=== PATIENT | male | born 1955 | race American Indian/Alaskan Native ===

== ENCOUNTER 2016-07-07 14:12 | Outpatient (CLI) | payer OTHER ==
[2016-07-07 15:04] LABS: Blood Urea Nitrogen 10 mg/dL (9-20)
--- NOTE | 2016-07-08 10:26 | Cat Scan Report ---
CTA CHEST INDICATION: Thoracic aortic aneurysm without rupture. COMPARISON: None similar at this institution. FINDINGS: Chest CTA performed following intravenous administration of 100 cc of Omnipaque 350. Rotational MIP's also obtained. Normal heart size. No effusions. Proximal ascending aorta 4 cm AP, axial image 101, series 2, though attains a normal caliber at the arch. No aortic dissection or suspicious pulmonary arterial filling defects. No size significant adenopathy. Normal airway. Unremarkable thyroid. Clear lungs. Right hemidiaphragm mildly elevated. Mild nonspecific distal esophageal wall thickening, not excluded for gastroesophageal reflux and/or hiatal hernia, amongst others. Images through included upper abdomen reveal no acute abnormality. Couple of hyperdense ascending colon diverticuli noted. Unremarkable bones. CONCLUSION: Borderline ascending aortic aneurysm and few other incidental findings without significant acute chest process, as described. Please correlate. Thank you for the opportunity to participate in this patient's care.
== END 2016-07-07 14:13 | disposition home or self-care (01) ==
LOC: CT 14:12
PROVIDERS: ATTEND Internal Medicine Cardiovascular Disease
DX: I71.2 Thoracic aortic aneurysm, without rupture (principal); J98.6 Disorders of diaphragm
CPT/HCPCS: 36415; 71275; 82565; 84520; Q9967

== ENCOUNTER 2019-03-13 10:13 | Outpatient (CLI) | payer BC ==
--- NOTE | 2019-03-13 12:05 | Cat Scan Report ---
CT ABDOMEN AND PELVIS WITHOUT CONTRAST HISTORY: R31.0 HEMATURIA COMPARISON: None. TECHNIQUE: Axial CT images were obtained through the abdomen and pelvis without IV contrast. Sagittal and coronal reformatted images. All CT scans at this location are performed using CT dose reduction for ALARA by means of automated exposure control. FINDINGS: CT ABDOMEN: Lung Bases: Clear. Liver: No significant abnormality. Biliary: No significant abnormality. Spleen: No significant abnormality. Unenlarged. Pancreas: No significant abnormality. Adrenals: No significant abnormality. Kidneys: No significant abnormality. No evidence for focal renal lesion or nephrolithiasis. The urete rs are normal course and caliber. Lymphatics: No lymphadenopathy. Vasculature: No significant abnormality. Bowel/Peritoneum: No evidence for bowel obstruction or focal inflammation. There are a few scattered diverticula in the ascending colon. No free fluid, inflammatory changes or free air. Normal appendix. CT PELVIS: : The bladder is partially empty. Mild diffuse bladder wall thickening is suggested which could be secondary to poor distention, trabeculation or cystitis. The prostate gland is unremarkable. Osseous Structures: No significant abnormality. Additional Findings: None IMPRESSION: No clear explanation for hematuria. No renal disease or nephrolithiasis is appreciated. The bladder is partially empty. There may be mild diffuse bladder wall thickening as described. Corre late with the patient's clinical presentation. Mild diverticulosis of the proximal colon. Signer Name: Blake Anaya Jr, MD Signed: 03/13/2019 12:00 PM Workstation Name: [id number]
== END 2019-03-13 10:14 | disposition home or self-care (01) ==
LOC: CT 10:13
PROVIDERS: ATTEND Urology
DX: K57.30 Diverticulosis of large intestine without perforation or abscess without bleeding (principal); R31.0 Gross hematuria
CPT/HCPCS: 74176

== ENCOUNTER 2019-03-14 13:28 | Day surgery (SDC) | payer BC, OTHER ==
--- NOTE | 2019-03-14 14:03 | Anesthesia Consultation ---
Anesthesia Consult and Med Hx Date of service: 03/14/19 - Airway Anesthetic Teeth Evaluation: Caps ROM Head & Neck: Adequate Mental/Hyoid Distance: Adequate Mallampati Class: Class II Intubation Access Assessment: Good - Pulmonary Exam CTA: Yes - Cardiac Exam Cardiac Exam: RRR - Pre-Operative Health Status ASA Pre-Surgery Classification: ASA3 Proposed Anesthetic Plan: General - Pulmonary Hx Smoking: No Hx Sleep Apnea: Yes - Cardiovascular System Hx Hypertension: Yes (since 2013) - Central Nervous System Hx Psychiatric Problems: No - Hematic Hx Anemia: Yes - Other Systems Hx Alcohol Use: Yes (RARE ) Hx Cancer: Yes Hx Obesity: Yes
--- NOTE | 2019-03-14 14:03 | Anesthesia Day of Surgery ---
Anesthesia Day of Surgery - Day of Surgery Patient Examined: Yes Patient H&P Reviewed: Yes Patient is NPO: Yes
[2019-03-14] MEDS ORDERED: LACTATED RINGERS 1,000 ML IV SCH (15:00)
[2019-03-14] MEDS ORDERED: FAMOTIDINE 20 MG TAB PO NR (15:00)
[2019-03-14] MEDS ORDERED: HYDROmorphone 1 MG/1 ML INJ ONE ×2 (15:08→16:42)
[2019-03-14] MEDS ORDERED: PROPOFOL 200 MG/20 ML VIAL IV ONE (15:08)
[2019-03-14] MEDS ORDERED: LIDOCAINE MPF (2%) 20 MG/1 ML VIAL 5 ML ONE (15:09)
--- NOTE | 2019-03-14 15:19 | Post Operative Note ---
Date of procedure: 03/14/19 Pre-op diagnosis: hematuria Post-op diagnosis: same Findings: see op note Procedure: cysto rpgs Anesthesia: GETA Surgeon: PRIMO COLEMAN Estimated blood loss: minimal Pathology: list (bladder) Specimen disposition: to lab Condition: stable Disposition: PACU
--- NOTE | 2019-03-14 15:20 | Discharge Summary ---
Short Stay Discharge Plan Activity: other (no straining ) Weight Bearing Status: Full Weight Bearing Diet: low fat, low cholesterol, low salt Special Instructions: other (teach lainez care ) Durable Medical Equipment Needed Upon Discharge: other (inc fluids lainez ) Follow up with: CHRISTINA MITCHELL MD [Primary Care Provider] - 7 Days PRIMO COLEMAN MD [Staff Physician] - 03/19/19
[2019-03-14] MEDS ORDERED: WATER FOR IRRIG STERILE 2000 ML IR ONE (15:38)
[2019-03-14] MEDS ORDERED: WATER FOR IRRIG STERILE 1,000 ML BOTTLE IR ONE (15:38)
[2019-03-14] MEDS ORDERED: FUROSEMIDE 40 MG/4 ML INJ ONE (15:41)
[2019-03-14] MEDS ORDERED: ONDANSETRON 4 MG/2 ML INJ ONE (15:54)
--- NOTE | 2019-03-14 16:18 | Operative Report ---
PREOPERATIVE DIAGNOSES: Hematuria, prostatic enlargement. POSTOPERATIVE DIAGNOSES: Hematuria, prostatic enlargement. PROCEDURES: Cystoscopy, bladder biopsy, fulguration, retrograde. SURGEON: Dr. Banda. ANESTHESIA: General. FINDINGS: This is a gentleman with large prostate and hematuria. CT scan negative. He now presents for treatment. DESCRIPTION OF PROCEDURE: The patient was brought to the operating room and placed on the operating table. Following induction of anesthesia, placed in lithotomy position, prepped and draped in usual sterile fashion. Cystourethroscopy showed trilobar hypertrophy. The bladder neck was very elevated. Retrograde showed severe J hooking with a large prostate and some varices. At this point, a little erythema posterior wall was biopsied. The patient tolerated the procedure well. Area was cauterized. A Mendez catheter was left, brought to recovery room in stable condition. JOB# [id number] NIKKO/SHADE
[2019-03-14] MEDS: HYDROmorphone 1 MG/1 ML INJ IV PRN ×2 (16:35→16:50)
[2019-03-14] MEDS ORDERED: oxyCODONE /ACETAMINOPHEN 5-325MG TAB PO ONE (17:50)
--- NOTE | 2019-03-14 18:00 | Fluoroscopy Report ---
Left retrograde pyelogram INDICATION: Hematuria FINDINGS: 6 views obtained from C-arm exam in the cystoscopy suite show selective injection of both u reteral orifices. There is no hydronephrosis or hydroureter on either side. Air bubbles are seen but there is no definite stone or tumor identified and there is no significant abnormality. Total fluoroscopic time was 12 seconds. Signer Name: Gomez Hernandez MD Signed: 03/14/2019 5:55 PM Workstation Name: [id number]
[2019-03-14 19:14] VITALS: BP 135/65
== END 2019-03-14 18:16 | disposition home or self-care (01) ==
LOC: OR 13:28
PROVIDERS: ATTEND Urology
DX: R31.0 Gross hematuria (principal); N40.1 Benign prostatic hyperplasia with lower urinary tract symptoms; E78.00 Pure hypercholesterolemia, unspecified; I10 Essential (primary) hypertension; G47.30 Sleep apnea, unspecified; E66.9 Obesity, unspecified; K21.9 Gastro-esophageal reflux disease without esophagitis; Z98.890 Other specified postprocedural states; Z88.2 Allergy status to sulfonamides; Z79.899 Other long term (current) drug therapy; Z68.41 Body mass index [BMI] 40.0-44.9, adult; Z85.46 Personal history of malignant neoplasm of prostate; Z72.89 Other problems related to lifestyle; Z86.2 Personal history of diseases of the blood and blood-forming organs and certain disorders involving the immune mechanism
CPT/HCPCS: 52204; 74420; 82803; 88305; A4217; C1758; J1170; J1940; J2405; J2704; J7120; Q9967

== ENCOUNTER 2019-03-15 12:32 | Emergency (ER) | payer BC ==
--- NOTE | 2019-03-15 12:52 | Event Note ---
ED Screening Note ED Screening Note: urinary catheter leaking procedure yesterday Dr Patti biggs rx antibiotic prozac This initial assessment/diagnostic orders/clinical plan/treatment(s) is/are subject to change based on patients health status, clinical progression and re- assessment by fellow clinical providers in the ED. Further treatment and workup at subsequent clinical providers discretion. Patient/guardian urged not to elope from the ED as their condition may be serious if not clinically assessed and managed. Initial orders include: ua cs lainez change
[2019-03-15 13:32] LABS: Basophils % (Auto) 0.5 % (0.0-1.8); Eosinophils % (Auto) 0.4 % (0.0-4.3); Hematocrit 38.6 % (35.5-45.6); Hemoglobin 13.3 gm/dl (11.8-15.2); Lymphocytes # (Auto) 1.3 K/mm3 (1.2-5.4); Lymphocytes % (Auto) 15.9 % (13.4-35.0); Mean Corpuscular HGB Conc 34 % (32-34); Mean Corpuscular Volume 93 fl (84-94); Monocytes # (Auto) 0.8 K/mm3 (0.0-0.8); Monocytes % (Auto) 10.4 % (0.0-7.3); Platelet Count 229 K/mm3 (140-440); Red Blood Count 4.13 M/mm3 (3.65-5.03)
[2019-03-15 14:22] LABS: BUN/Creatinine Ratio 15; Blood Urea Nitrogen 15 mg/dL (9-20); Calcium 9.4 mg/dL (8.4-10.2); Hemolysis Index 4
[2019-03-15 16:34] LABS: Bilirubin,Urine NEG (Negative); Blood,Urine LG (Negative); Calcium Oxalate Crystals,Urine 1+; Color,Urine Yellow (Yellow); Mucus,Urine 3+ /HPF; Urobilinogen,Urine < 2.0 mg/dL (<2.0)
[2019-03-15 16:40] LABS: RBC,Urine > 182.0 /HPF (0.0-6.0)
[2019-03-15 17:04] VITALS: BP 144/76
--- NOTE | 2019-03-15 17:22 | Emergency Department Report ---
ED General Adult HPI - General Chief complaint: Urogenital-Male Stated complaint: DIFFICULTY URINATING Time Seen by Provider: 03/15/19 12:49 Source: patient Mode of arrival: Ambulatory Limitations: No Limitations - History of Present Illness Initial comments: Patient presents to the emergency department for chief complaint of leaking around his Mendez and bladder pain. Patient is one day status post a retrograde pyelogram was sent home with indwelling Mendez. Patient states he feels continuously full and has had leakage around the Mendez. -: Sudden Severity scale (0 -10): 2 Consistency: constant Improves with: none Worsens with: none Associated Symptoms: denies other symptoms Treatments Prior to Arrival: none - Related Data Home Medications Medication Instructions Recorded Confirmed Last Taken Atorvastatin (Nf) [Lipitor (Nf)] 10 mg PO QHS 05/10/14 03/14/19 03/13/19 21:00 Tamsulosin [Flomax] 10 mg PO QDAY 05/10/14 03/14/19 03/13/19 08:00 amLODIPine [Norvasc] 10 mg PO DAILY 05/10/14 03/14/19 03/13/19 08:00 Multivitamin [One-Daily 1 tab PO DAILY 11/20/18 03/14/19 03/13/19 08:00 Multi-Vitamin] [place] 3,6,9 Combination No.7 1 mg PO DAILY 11/20/18 03/14/19 03/13/19 08:00 Previous Rx's Medication Instructions Recorded Last Taken Type cephALEXin [Keflex] 500 mg PO Q6HR #40 capsule 03/15/19 Unknown Rx Allergies Allergy/AdvReac Type Severity Reaction Status Date / Time Sulfa (Sulfonamide AdvReac Swelling Verified 03/08/19 14:52 Antibiotics) ED Review of Systems ROS: Stated complaint: DIFFICULTY URINATING Other details as noted in HPI Comment: All other systems reviewed and negative Constitutional: denies: chills, fever Eyes: denies: eye pain, eye discharge, vision change ENT: denies: ear pain, throat pain Respiratory: denies: cough, shortness of breath, wheezing Cardiovascular: denies: chest pain, palpitations Endocrine: no symptoms reported Gastrointestinal: denies: abdominal pain, nausea, diarrhea Genitourinary: denies: urgency, dysuria Musculoskeletal: denies: back pain, joint swelling, arthralgia Skin: denies: rash, lesions Neurological: denies: headache, weakness, paresthesias Psychiatric: denies: anxiety, depression Hematological/Lymphatic: denies: easy bleeding, easy bruising ED Past Medical Hx - Past Medical History Hx Hypertension: Yes (since 2013) Hx Diabetes: Yes (BORDERLINE- DIET CONTROLLED) Hx GERD: Yes Hx Tuberculosis: No - Surgical History Additional Surgical History: Retrograde pyelogram - Social History Smoking Status: Never Smoker Substance Use Type: None - Medications Home Medications: Home Medications Medication Instructions Recorded Confirmed Last Taken Type Atorvastatin (Nf) [Lipitor (Nf)] 10 mg PO QHS 05/10/14 03/14/19 03/13/19 21:00 History Tamsulosin [Flomax] 10 mg PO QDAY 05/10/14 03/14/19 03/13/19 08:00 History amLODIPine [Norvasc] 10 mg PO DAILY 05/10/14 03/14/19 03/13/19 08:00 History Multivitamin [One-Daily 1 tab PO DAILY 11/20/18 03/14/19 03/13/19 08:00 History Multi-Vitamin] [place] 3,6,9 Combination No.7 1 mg PO DAILY 11/20/18 03/14/19 03/13/19 08:00 History cephALEXin [Keflex] 500 mg PO Q6HR #40 capsule 03/15/19 Unknown Rx ED Physical Exam - General Limitations: No Limitations General appearance: alert, in no apparent distress - Head Head exam: Present: atraumatic, normocephalic - Eye Eye exam: Present: normal appearance, PERRL, EOMI - ENT ENT exam: Present: mucous membranes moist - Neck Neck exam: Present: normal inspection - Respiratory Respiratory exam: Present: normal lung sounds bilaterally. Absent: respiratory distress - Cardiovascular Cardiovascular Exam: Present: regular rate, normal rhythm. Absent: systolic murmur, diastolic murmur, rubs, gallop - GI/Abdominal GI/Abdominal exam: Present: soft, normal bowel sounds. Absent: distended, tenderness - Rectal Rectal exam: Present: deferred - exam: Present: other (Mendez in place) - Extremities Exam Extremities exam: Present: normal inspection - Back Exam Back exam: Present: normal inspection - Neurological Exam Neurological exam: Present: alert, oriented X3 - Psychiatric Psychiatric exam: Present: normal affect, normal mood - Skin Skin exam: Present: warm, dry, intact, normal color. Absent: rash ED Course Vital Signs 03/15/19 03/15/19 12:53 17:02 Temperature 98.8 F 98.6 F Pulse Rate 102 H 82 Respiratory 20 12 Rate Blood Pressure 165/77 Blood Pressure 144/76 [Left] O2 Sat by Pulse 95 94 Oximetry ED Medical Decision Making - Lab Data Result diagrams: 03/15/19 12:58 03/15/19 12:58 Lab Results 03/15/19 03/15/19 03/15/19 Range/Units 12:58 12:58 Unknown WBC 7.9 (4.5-11.0) K/mm3 RBC 4.13 (3.65-5.03) M/mm3 Hgb 13.3 (11.8-15.2) gm/dl Hct 38.6 (35.5-45.6) % MCV 93 (84-94) fl MCH 32 (28-32) pg MCHC 34 (32-34) % RDW 13.0 L (13.2-15.2) % Plt Count 229 (140-440) K/mm3 Lymph % (Auto) 15.9 (13.4-35.0) % [place] % (Auto) 10.4 H (0.0-7.3) % Eos % (Auto) 0.4 (0.0-4.3) % Baso % (Auto) 0.5 (0.0-1.8) % Lymph # 1.3 (1.2-5.4) K/mm3 [place] # 0.8 (0.0-0.8) K/mm3 Eos # 0.0 (0.0-0.4) K/mm3 Baso # 0.0 (0.0-0.1) K/mm3 Seg Neutrophils % 72.8 H (40.0-70.0) % Seg Neutrophils # 5.8 (1.8-7.7) K/mm3 Sodium 136 L (137-145) mmol/L Potassium 4.0 (3.6-5.0) mmol/L Chloride 99.4 (98-107) mmol/L Carbon Dioxide 19 L (22-30) mmol/L Anion Gap 22 mmol/L BUN 15 (9-20) mg/dL Creatinine 1.0 (0.8-1.5) mg/dL Estimated GFR > 60 ml/min BUN/Creatinine Ratio 15 % Glucose 117 H (75-100) mg/dL Calcium 9.4 (8.4-10.2) mg/dL Urine Color Yellow (Yellow) Urine Turbidity Cloudy (Clear) Urine pH 5.0 (5.0-7.0) Ur Specific [place] 1.033 H (1.003-1.030) Urine Protein 100 mg/dl (Negative) mg/dL Urine Glucose (UA) Neg (Negative) mg/dL Urine Ketones Tr (Negative) mg/dL Urine Blood Lg (Negative) Urine Nitrite Neg (Negative) Urine Bilirubin Neg (Negative) Urine Urobilinogen < 2.0 (<2.0) mg/dL Ur Leukocyte Esterase Lg (Negative) Urine WBC (Auto) 111.0 H (0.0-6.0) /HPF Urine RBC (Auto) > 182.0 (0.0-6.0) /HPF Calcium Oxalate Crystal 1+ Urine Mucus 3+ /HPF - Medical Decision Making SR ultrasound done and shows us small amount of urine in the bladder Upon examination of the Mendez 8cc's of air was taking out but we were able to put 20 back and without any resistance The was replaced just a procedure and the balloon appeared to be damaged on the initial Mendez 300 mL of urine excreted upon change of Mendez Critical care attestation.: If time is entered above; I have spent that time in minutes in the direct care of this critically ill patient, excluding procedure time. ED Disposition Clinical Impression: Mendez catheter problem, Bacteriuria Disposition: TO HOME OR SELFCARE Is pt being admited?: No Does the pt Need Aspirin: No Condition: Stable Instructions: Mendez Catheter Placement and Care (ED), Urinary Tract Infection in Men (ED) Additional Instructions: return if worse Referrals: PRIMARY CARE, [Primary Care Provider] - 3-5 Days PRIMO COLEMAN MD [Staff Physician] - 3-5 Days Time of Disposition: 20:32
== END 2019-03-15 20:58 | disposition home or self-care (01) ==
LOC: ED 12:32
DX: R82.71 Bacteriuria (principal); T83.091A Other mechanical complication of indwelling urethral catheter, initial encounter; I10 Essential (primary) hypertension; E11.9 Type 2 diabetes mellitus without complications; K21.9 Gastro-esophageal reflux disease without esophagitis; Z98.890 Other specified postprocedural states; Z79.899 Other long term (current) drug therapy; Z88.2 Allergy status to sulfonamides
CPT/HCPCS: 36415; 51702; 80048; 81001; 85025; 87086

== ENCOUNTER 2019-04-07 06:10 | Observation (INO) | payer BC, OTHER ==
[2019-04-07] MEDS ORDERED: HYDROcodone/ACETAMINOPHEN 5-325 MG TAB PO ONE (07:10)
--- NOTE | 2019-04-07 07:22 | Emergency Department Report ---
HPI - General Chief Complaint: Urogenital-Male Time Seen by Provider: 04/07/19 06:30 - HPI HPI: Room 23 The patient is a 63-year-old male presenting with chief complaint urinary retention. Sensation states symptoms began yesterday at noon with hematuria small amount of dysuria. The patient states then began feels bladder becomes full eventually could not urinate since 06:00 this morning. The patient had a Mendez catheter placed in the ED and states he felt relief initially but now feels the pressure is building back up. There is approximately 700 and also bloody urine present in his Mendez bag. Location: [See above] Duration: [See above] Quality: [See above] Severity: [See above] Timing: [See above] Context: [See above] Modifying factors: [See above] Associated signs and symptoms: [see above] ED Past Medical Hx - Past Medical History Previous Medical History?: Yes Hx Hypertension: Yes (since 2013) Hx Diabetes: Yes (BORDERLINE- DIET CONTROLLED) Hx GERD: Yes Hx of Cancer: Yes (prostate) Additional medical history: high cholesterol - Surgical History Past Surgical History?: Yes Additional Surgical History: Retrograde pyelogram, prostate seed implants - Family History Family history: no significant - Social History Smoking Status: Never Smoker Substance Use Type: None (denies illicit drug use), Alcohol (occasional) - Medications Home Medications: Home Medications Medication Instructions Recorded Confirmed Last Taken Type Atorvastatin (Nf) [Lipitor (Nf)] 10 mg PO QHS 05/10/14 03/14/19 03/13/19 21:00 History Tamsulosin [Flomax] 10 mg PO QDAY 05/10/14 03/14/19 03/13/19 08:00 History amLODIPine [Norvasc] 10 mg PO DAILY 05/10/14 03/14/19 03/13/19 08:00 History Multivitamin [One-Daily 1 tab PO DAILY 11/20/18 03/14/19 03/13/19 08:00 History Multi-Vitamin] [place] 3,6,9 Combination No.7 1 mg PO DAILY 11/20/18 03/14/19 03/13/19 08:00 History cephALEXin [Keflex] 500 mg PO Q6HR #40 capsule 03/15/19 Unknown Rx ED Review of Systems ROS: Stated complaint: BLADDER PAIN Other details as noted in HPI Genitourinary: dysuria, hematuria, other (urinary retention) Physical Exam - Physical Exam Vital Signs: Vital Signs 04/07/19 04/07/19 06:15 06:50 Temperature 98.2 F Pulse Rate 98 H Respiratory 20 18 Rate Blood Pressure 112/76 O2 Sat by Pulse 99 99 Oximetry Physical Exam: GENERAL: The patient is well-developed well-nourished male sitting on stretcher not appearing to be in acute distress. [] HEENT: Normocephalic. Atraumatic. Extraocular motions are intact. Patient has moist mucous membranes. NECK: Supple. Trachea midline CHEST/LUNGS: Clear to auscultation. There is no respiratory distress noted. HEART/CARDIOVASCULAR: Regular. There is no tachycardia. There is no gallop rub or murmur. ABDOMEN: Abdomen is soft, nontender. Patient has normal bowel sounds. There is no abdominal distention. SKIN: There is no rash. There is no edema. There is no diaphoresis. NEURO: The patient is awake, alert, and oriented. The patient is cooperative. The patient has normal speech MUSCULOSKELETAL: There is no evidence of acute injury. ED Course Vital Signs 04/07/19 04/07/19 06:15 06:50 Temperature 98.2 F Pulse Rate 98 H Respiratory 20 18 Rate Blood Pressure 112/76 O2 Sat by Pulse 99 99 Oximetry - Reevaluation(s) Reevaluation #1: 04/07/19 09:22 Patient states he feels improved - Consultations Consultation #1: 04/07/19 09:21 Urology paged 04/07/19 09:[address] Banda- states patient should be admitted by the hospitalist and we made nothing by mouth for possible cystoscopy later today. Once patient typed and crossed for 2 units PRBCs ED Medical Decision Making - Lab Data Result diagrams: 04/07/19 07:20 04/07/19 07:20 Laboratory Tests 04/07/19 04/07/19 04/07/19 07:20 07:20 07:20 WBC 4.8 RBC 3.05 L Hgb 9.7 L Hct 28.3 L MCV 93 MCH 32 MCHC 34 RDW 12.9 L Plt Count 290 Lymph % (Auto) 21.2 [place] % (Auto) 11.8 H Eos % (Auto) 1.0 Baso % (Auto) 0.3 Lymph # 1.0 L [place] # 0.6 Eos # 0.0 Baso # 0.0 Seg Neutrophils % 65.7 Seg Neutrophils # 3.1 PT 14.2 INR 1.09 APTT 27.4 Sodium 133 L Potassium 4.4 Chloride 100.3 Carbon Dioxide 18 L Anion Gap 19 BUN 25 H Creatinine 1.3 Estimated GFR > 60 BUN/Creatinine Ratio 19 Glucose 132 H Calcium 9.2 Urine Color Urine Turbidity Urine pH Ur Specific [place] Urine Protein Urine Glucose (UA) Urine Ketones Urine Blood Urine Nitrite Urine Bilirubin Urine Urobilinogen Ur Leukocyte Esterase Urine WBC (Auto) Urine RBC (Auto) 04/07/19 08:10 WBC RBC Hgb Hct MCV MCH MCHC RDW Plt Count Lymph % (Auto) [place] % (Auto) Eos % (Auto) Baso % (Auto) Lymph # [place] # Eos # Baso # Seg Neutrophils % Seg Neutrophils # PT INR APTT Sodium Potassium Chloride Carbon Dioxide Anion Gap BUN Creatinine Estimated GFR BUN/Creatinine Ratio Glucose Calcium Urine Color Red Urine Turbidity Cloudy Urine pH 6.0 Ur Specific [place] 1.026 Urine Protein >500 Urine Glucose (UA) 50 Urine Ketones Tr Urine Blood Lg Urine Nitrite Neg Urine Bilirubin Neg Urine Urobilinogen < 2.0 Ur Leukocyte Esterase Neg Urine WBC (Auto) 25.0 H Urine RBC (Auto) > 182.0 - Differential Diagnosis urinary retention Critical care attestation.: If time is entered above; I have spent that time in minutes in the direct care of this critically ill patient, excluding procedure time. ED Disposition Clinical Impression: Urinary retention, UTI (urinary tract infection), Hematuria Disposition: 09 OP ADMIT IP TO THIS HOSP Is pt being admited?: Yes Does the pt Need Aspirin: No Condition: Fair Time of Disposition: 09:42 (hospitalist paged)
[2019-04-07 07:49] LABS: Basophils % (Auto) 0.3 % (0.0-1.8); Hematocrit 28.3 % (35.5-45.6); Hemoglobin 9.7 gm/dl (11.8-15.2); Lymphocytes % (Auto) 21.2 % (13.4-35.0); Mean Corpuscular HGB Conc 34 % (32-34); Mean Corpuscular Volume 93 fl (84-94); Monocytes # (Auto) 0.6 K/mm3 (0.0-0.8); Monocytes % (Auto) 11.8 % (0.0-7.3); Platelet Count 290 K/mm3 (140-440); Red Blood Count 3.05 M/mm3 (3.65-5.03); Red Cell Distribution Width 12.9 % (13.2-15.2)
[2019-04-07 07:52] LABS: INR 1.09 (0.87-1.13)
[2019-04-07 07:53] LABS: Partial Thromboplastin Time 27.4 Sec. (24.2-36.6)
[2019-04-07] MEDS ORDERED: diazePAM 5 MG TAB PO ONE (08:00)
[2019-04-07 08:02] LABS: BUN/Creatinine Ratio 19; Blood Urea Nitrogen 25 mg/dL (9-20); Calcium 9.2 mg/dL (8.4-10.2); Hemolysis Index 4
[2019-04-07] MEDS ORDERED: diazePAM 5 MG TAB ONE (08:03)
[2019-04-07 08:49] LABS: Bilirubin,Urine NEG (Negative); Blood,Urine LG (Negative); Color,Urine Red (Yellow); Urobilinogen,Urine < 2.0 mg/dL (<2.0)
[2019-04-07 09:08] LABS: Protein,Urine >500 mg/dL (Negative); RBC,Urine > 182.0 /HPF (0.0-6.0)
[2019-04-07] MEDS ORDERED: SODIUM CHLORIDE 0.9% 500 ML 500 ML IV ONE (09:38)
[2019-04-07] MEDS ORDERED: SODIUM CHLORIDE 0.9% 500 ML 500 ML ONE ×2 (10:15→13:06)
--- NOTE | 2019-04-07 10:46 | Anesthesia Consultation ---
Anesthesia Consult and Med Hx Date of service: 04/07/19 - Airway Anesthetic Teeth Evaluation: Good ROM Head & Neck: Adequate Mental/Hyoid Distance: Adequate Mallampati Class: Class III Intubation Access Assessment: Possibly Difficult (previous LMA 4) - Pulmonary Exam CTA: Yes - Cardiac Exam Cardiac Exam: RRR - Pre-Operative Health Status ASA Pre-Surgery Classification: ASA3 Proposed Anesthetic Plan: General - Pulmonary Hx Smoking: No Hx Respiratory Symptoms: No Hx Sleep Apnea: Yes (noncompliant with CPAP) - Cardiovascular System Hx Hypertension: Yes Hx Heart Attack/AMI: No Hx Percutaneous Transluminal Coronary Angioplasty (PTCA): No Hx Cardia Arrhythmia: No - Central Nervous System CVA: No Hx Psychiatric Problems: No - Gastrointestinal Hx Gastroesophageal Reflux Disease: No - Endocrine Hx Renal Disease: No Hx Liver Disease: No Hx Non-Insulin Dependent Diabetes: Yes (diet controlled) Hx Thyroid Disease: No - Hematic Hx Anemia: Yes - Other Systems Hx Alcohol Use: Yes (RARE ) Hx Cancer: Yes (hx prostate ca) Hx Obesity: Yes (BMI 44) - Additional Comments Anesthesia Medical History Comments: No hx anesthetic complications. Presented with urinary retention and hematuria now scheduled for cystoscopy. HD stable. 2 units pRBCs ordered on stand by (patient gave verbal consent for transfusion if required).
--- NOTE | 2019-04-07 10:47 | Anesthesia Day of Surgery ---
Anesthesia Day of Surgery - Day of Surgery Patient Examined: Yes Patient H&P Reviewed: Yes Patient is NPO: Yes (last solids >12hrs, last liquids >6hrs)
[2019-04-07] MEDS ORDERED: LIDOCAINE MPF (2%) 20 MG/1 ML VIAL 5 ML ONE (10:54)
[2019-04-07] MEDS ORDERED: HYDROmorphone 1 MG/1 ML INJ ONE (10:54)
[2019-04-07] MEDS ORDERED: PROPOFOL 200 MG/20 ML VIAL IV ONE (10:54)
--- NOTE | 2019-04-07 11:48 | Progress Note ---
Assessment and Plan admit transfuse spoke with Samuel poss embolization h and p on chart Subjective Date of service: 04/07/19 Principal diagnosis: hemasturia radiation prostatitis Objective - Constitutional Vitals: Vital Signs - 12hr 04/07/19 04/07/19 04/07/19 06:15 06:50 07:00 Temperature 98.2 F Pulse Rate 98 H Respiratory 20 18 Rate Blood Pressure 112/76 109/56 O2 Sat by Pulse 99 99 96 Oximetry 04/07/19 04/07/19 04/07/19 07:25 08:00 09:00 Temperature Pulse Rate Respiratory 18 Rate Blood Pressure 163/103 112/67 O2 Sat by Pulse 97 95 Oximetry 04/07/19 10:00 Temperature Pulse Rate Respiratory Rate Blood Pressure 123/69 O2 Sat by Pulse 90 Oximetry General appearance: Present: mild distress - Neck Neck: supple - Respiratory Respiratory effort: normal Extremities: no ischemia - Gastrointestinal General gastrointestinal: Present: non-distended - Labs CBC & Chem 7: 04/07/19 07:20 04/07/19 07:20 Labs: Abnormal lab results 04/07/19 04/07/19 04/07/19 Range/Units 07:20 07:20 08:10 RBC 3.05 L (3.65-5.03) M/mm3 Hgb 9.7 L (11.8-15.2) gm/dl Hct 28.3 L (35.5-45.6) % RDW 12.9 L (13.2-15.2) % [place] % (Auto) 11.8 H (0.0-7.3) % Lymph # 1.0 L (1.2-5.4) K/mm3 Sodium 133 L (137-145) mmol/L Carbon Dioxide 18 L (22-30) mmol/L BUN 25 H (9-20) mg/dL Glucose 132 H (75-100) mg/dL Urine WBC (Auto) 25.0 H (0.0-6.0) /HPF Medications & Allergies - Medications Allergies/Adverse Reactions: Allergies Sulfa (Sulfonamide Antibiotics) Adverse Reaction (Verified 03/08/19 14:52) Swelling HIVES Home Medications: Home Medications Medication Instructions Recorded Confirmed Last Taken Type Atorvastatin (Nf) [Lipitor (Nf)] 10 mg PO QHS 05/10/14 04/07/19 03/13/19 21:00 History Tamsulosin [Flomax] 10 mg PO QDAY 05/10/14 04/07/19 03/13/19 08:00 History amLODIPine [Norvasc] 10 mg PO DAILY 05/10/14 04/07/19 03/13/19 08:00 History Multivitamin [One-Daily 1 tab PO DAILY 11/20/18 04/07/19 03/13/19 08:00 History Multi-Vitamin] [place] 3,6,9 Combination No.7 1 mg PO DAILY 11/20/18 04/07/19 03/13/19 08:00 History
[2019-04-07] MEDS ORDERED: ZOLPIDEM 5 MG TAB PO PRN (11:51)
--- NOTE | 2019-04-07 11:59 | Post Operative Note ---
Date of procedure: 04/07/19 Pre-op diagnosis: hematuria clot retention Post-op diagnosis: same Findings: clots large varices elevated BN Procedure: cysto evac clots fulg min tur Anesthesia: GETA Surgeon: PRIMO COLEMAN Estimated blood loss: 50-100ml Pathology: list (prostate) Specimen disposition: to lab Condition: stable Disposition: PACU
[2019-04-07] MEDS ORDERED: SODIUM CHLORIDE 0.9% IRRIG SOLN 3000 ML IR ONE ×2 (12:15)
[2019-04-07] MEDS ORDERED: WATER FOR IRRIG STERILE 2000 ML IR ONE (12:18)
[2019-04-07] MEDS ORDERED: SODIUM CHLORIDE 0.9% 1000 ML 1,000 ML ONE (13:15)
[2019-04-07] MEDS: fentaNYL 100 MCG/2 ML INJ IV PRN ×4 (13:38→14:55)
--- NOTE | 2019-04-07 15:26 | XRay Report ---
Pelvis 2 views INDICATION: Urinary catheter placement IMPRESSION: Transurethral catheter placement with contrast injected which appears to be within the ur inary bladder. Total fluoroscopy time 0.2 minutes Signer Name: Samson Diane MD Signed: 04/07/2019 3:22 PM Workstation Name: [id number]
--- NOTE | 2019-04-07 15:29 | Post Anesthesia Evaluation ---
- Post Anesthesia Evaluation Patient Participated: Yes Airway Patent: Yes Stable Respiratory Function: Yes Nausea/Vomiting: No Temp > 96.8F: Yes Pain Manageable: Yes Adequeate Hydration: Yes Anesthesia Complications: No Other Comments: Post op H/H at preop baseline. Recieved 2 units pRBCs in PACU per surgeon orders.
--- NOTE | 2019-04-07 15:43 | XRay Report ---
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 COMPARISON: Abdominal CT scan 03/13/2019 IMPRESSION: Unremarkable miller helper radiograph. Normal visualized gas pattern. No significant degenerative change in t he lumbar spine, SI joints or hips. Signer Name: Avila Casillas MD Signed: 04/07/2019 3:38 PM Workstation Name: [id number]
--- NOTE | 2019-04-07 16:14 | Operative Report ---
PREOPERATIVE DIAGNOSES: Gross hematuria, bladder filled with clots. POSTOPERATIVE DIAGNOSES: Gross hematuria, bladder filled with clots. PROCEDURE: Cystoscopy, transurethral resection of bladder neck, fulguration of bleeding sites. SURGEON: Dr. Banda. ANESTHESIA: General. FINDINGS: This is a gentleman who has been bleeding for years after radiation and came to see me. Cystoscopy showed some inflammation. We did a bladder biopsy and then he continues to have bleeding. He had clots evacuated in the office then cleared up and he continues to bleed. He now presents to the Emergency Room with bladder filled with clots. DESCRIPTION OF PROCEDURE: The patient was brought to the operating room and placed on the operating table. Following induction of anesthesia, placed in lithotomy position, prepped and draped in usual sterile fashion. Cystoscopy showed a very elevated bladder neck with varices, especially at the bladder neck that were bleeding. Large amount of clots were once again evacuated. There was no active bleeding from the bladder. The bladder neck had to be resected, it was fibrotic, once we got rid of the epithelium that was bleeding. Area was cauterized in a circumferential fashion. Chips were evacuated and sent to pathology along with the clots. We had ordered a type and cross in the Emergency Room 3 hours ago, it was never sent. We checked on it before this case. They said it was sent and would be ready. The patient at the end of the case is still stable, the blood is still not ready and administration was notified. The irrigation is now clear. The patient was brought to recovery in stable condition. JOB# [id number] NIKKO/SHADE
[2019-04-07] MEDS: D5W/0.45% NACL/KCL 20 MEQ 20 MEQ/1,000 ML BAG IV SCH ×2 (16:18→23:38)
[2019-04-07] MEDS: oxyCODONE /ACETAMINOPHEN 5-325MG TAB PO PRN (19:00)
--- NOTE | 2019-04-07 19:35 | History and Physical Report ---
History of Present Illness Date of examination: 04/07/19 Date of admission: 04/07/19 09:44 Chief complaint: Severe Hematuria History of present illness: The patient is a 63-year-old male presenting with chief complaint urinary retention. Sensation states symptoms began yesterday at noon with hematuria small amount of dysuria. The patient states then began feels bladder becomes full eventually could not urinate since 06:00 this morning. The patient had a Mendez catheter placed in the ED and states he felt relief initially but now feels the pressure is building back up. There is approximately 700 and also bloody urine present in his Mendez bag. Past Medical History Previous Medical History?: Yes Hypertension: Yes (since 2013) Diabetes: Yes (BORDERLINE- DIET CONTROLLED) GERD: Yes Yes (prostate) Additional medical history: high cholesterol Surgical History Past Surgical History?: Yes Additional Surgical History: Retrograde pyelogram, prostate seed implants Family History Family history: no significant Social History Smoking Status: Never Smoker Substance Use Type: None (denies illicit drug use), Alcohol (occasional) Medications Home Medications: Home Medications Medication Instructions Recorded Confirmed Last Taken Type Atorvastatin (Nf) [Lipitor (Nf)] 10 mg PO QHS 05/10/14 03/14/19 03/13/19 21:00 History Tamsulosin [Flomax] 10 mg PO QDAY 05/10/14 03/14/19 03/13/19 08:00 History amLODIPine [Norvasc] 10 mg PO DAILY 05/10/14 03/14/19 03/13/19 08:00 History Multivitamin [One-Daily 1 tab PO DAILY 11/20/18 03/14/19 03/13/19 08:00 History Multi-Vitamin] [place] 3,6,9 Combination No.7 1 mg PO DAILY 11/20/18 03/14/19 03/13/19 08:00 History cephALEXin [Keflex] 500 mg PO Q6HR #40 capsule 03/15/19 Unknown Rx Review of Systems ROS: Stated complaint: BLADDER PAIN Other details as noted in HPI Genitourinary: dysuria, hematuria, other (urinary retention) Medications and Allergies Allergies Allergy/AdvReac Type Severity Reaction Status Date / Time Sulfa (Sulfonamide AdvReac Swelling Verified 03/08/19 14:52 Antibiotics) Home Medications Medication Instructions Recorded Confirmed Last Taken Type Atorvastatin (Nf) [Lipitor (Nf)] 10 mg PO QHS 05/10/14 04/07/19 03/13/19 21:00 History Tamsulosin [Flomax] 10 mg PO QDAY 05/10/14 04/07/19 03/13/19 08:00 History amLODIPine [Norvasc] 10 mg PO DAILY 05/10/14 04/07/19 03/13/19 08:00 History Multivitamin [One-Daily 1 tab PO DAILY 11/20/18 04/07/19 03/13/19 08:00 History Multi-Vitamin] [place] 3,6,9 Combination No.7 1 mg PO DAILY 11/20/18 04/07/19 03/13/19 08:00 History Ketorolac [Toradol] 10 mg PO Q8H PRN 04/07/19 04/07/19 04/06/19 History Mirabegron [Myrbetriq] 25 mg PO DAILY 04/07/19 04/07/19 04/06/19 History 25 mg Active Meds: Active Medications Potassium Chloride/Dextrose/Sod Cl (D5w/0.45% Nacl/Kcl 20 Meq) 20 meq in 1,000 mls @ 125 mls/hr IV DIRECT JORGE Last Admin: 04/07/19 16:18 Dose: 125 mls/hr Documented by: Levofloxacin/Dextrose (Levaquin 500mg/100ml) 500 mg in 100 mls @ 100 mls/hr IV Q24HR NR; Protocol Stop: 04/10/19 10:59 Oxycodone/Acetaminophen (Percocet 5/325) 2 tab PO Q6H PRN PRN Reason: Pain, Moderate (4-6) Last Admin: 04/07/19 19:00 Dose: 2 tab Documented by: Sodium Chloride (Nacl 0.9%) 2,000 ml IR DIRECT JORGE Zolpidem Tartrate (Ambien) 5 mg PO QHS PRN PRN Reason: Sleep Exam - Constitutional Vitals: Temp Pulse Resp BP Pulse Ox 97.1 F L 66 20 146/79 100 04/07/19 15:15 04/07/19 15:15 04/07/19 15:15 04/07/19 15:15 04/07/19 15:15 General appearance: Present: no acute distress, well-nourished - EENT Eyes: Present: PERRL ENT: hearing intact, clear oral mucosa - Neck Neck: Present: supple, normal ROM - Respiratory Respiratory effort: normal Respiratory: bilateral: CTA - Cardiovascular Heart Sounds: Present: S1 & S2. Absent: rub, click - Extremities Extremities: pulses symmetrical, No edema Peripheral Pulses: within normal limits - Abdominal General gastrointestinal: Present: soft, non-tender, non-distended, normal bowel sounds Male genitourinary: Present: normal - Integumentary Integumentary: Present: clear, warm, dry - Musculoskeletal Musculoskeletal: gait normal, strength equal bilaterally - Psychiatric Psychiatric: appropriate mood/affect, intact judgment & insight - Neurologic Neurologic: CNII-XII intact, moves all extremities Results - Labs CBC & Chem 7: 04/08/19 04:38 04/08/19 04:38 Labs: Laboratory Last Values WBC 4.8 K/mm3 (4.5-11.0) 04/07/19 07:20 RBC 3.05 M/mm3 (3.65-5.03) L 04/07/19 07:20 Hgb 9.0 gm/dl (11.8-15.2) L 04/07/19 13:25 Hct 25.0 % (35.5-45.6) L 04/07/19 13:25 MCV 93 fl (84-94) 04/07/19 07:20 MCH 32 pg (28-32) 04/07/19 07:20 MCHC 34 % (32-34) 04/07/19 07:20 RDW 12.9 % (13.2-15.2) L 04/07/19 07:20 Plt Count 290 K/mm3 (140-440) 04/07/19 07:20 Lymph % (Auto) 21.2 % (13.4-35.0) 04/07/19 07:20 [place] % (Auto) 11.8 % (0.0-7.3) H 04/07/19 07:20 Eos % (Auto) 1.0 % (0.0-4.3) 04/07/19 07:20 Baso % (Auto) 0.3 % (0.0-1.8) 04/07/19 07:20 Lymph # 1.0 K/mm3 (1.2-5.4) L 04/07/19 07:20 [place] # 0.6 K/mm3 (0.0-0.8) 04/07/19 07:20 Eos # 0.0 K/mm3 (0.0-0.4) 04/07/19 07:20 Baso # 0.0 K/mm3 (0.0-0.1) 04/07/19 07:20 Seg Neutrophils % 65.7 % (40.0-70.0) 04/07/19 07:20 Seg Neutrophils # 3.1 K/mm3 (1.8-7.7) 04/07/19 07:20 PT 14.2 Sec. (12.2-14.9) 04/07/19 07:20 INR 1.09 (0.87-1.13) 04/07/19 07:20 APTT 27.4 Sec. (24.2-36.6) 04/07/19 07:20 Sodium 133 mmol/L (137-145) L 04/07/19 07:20 Potassium 4.4 mmol/L (3.6-5.0) 04/07/19 07:20 Chloride 100.3 mmol/L (98-107) 04/07/19 07:20 Carbon Dioxide 18 mmol/L (22-30) L 04/07/19 07:20 Anion Gap 19 mmol/L 04/07/19 07:20 BUN 25 mg/dL (9-20) H 04/07/19 07:20 Creatinine 1.3 mg/dL (0.8-1.5) 04/07/19 07:20 Estimated GFR > 60 ml/min 04/07/19 07:20 BUN/Creatinine Ratio 19 % 04/07/19 07:20 Glucose 132 mg/dL (75-100) H 04/07/19 07:20 Calcium 9.2 mg/dL (8.4-10.2) 04/07/19 07:20 Urine Color Red (Yellow) 04/07/19 08:10 Urine Turbidity Cloudy (Clear) 04/07/19 08:10 Urine pH 6.0 (5.0-7.0) 04/07/19 08:10 Ur Specific [place] 1.026 (1.003-1.030) 04/07/19 08:10 Urine Protein >500 mg/dL (Negative) 04/07/19 08:10 Urine Glucose (UA) 50 mg/dL (Negative) 04/07/19 08:10 Urine Ketones Tr mg/dL (Negative) 04/07/19 08:10 Urine Blood Lg (Negative) 04/07/19 08:10 Urine Nitrite Neg (Negative) 04/07/19 08:10 Urine Bilirubin Neg (Negative) 04/07/19 08:10 Urine Urobilinogen < 2.0 mg/dL (<2.0) 04/07/19 08:10 Ur Leukocyte Esterase Neg (Negative) 04/07/19 08:10 Urine WBC (Auto) 25.0 /HPF (0.0-6.0) H 04/07/19 08:10 Urine RBC (Auto) > 182.0 /HPF (0.0-6.0) 04/07/19 08:10 Blood Type A POSITIVE 04/07/19 12:25 Antibody Screen Negative 04/07/19 12:25 Crossmatch See Detail 04/07/19 12:25 Assessment and Plan Advance Directives: Yes (Full code) VTE prophylaxis?: Chemical Plan of care discussed with patient/family: Yes - Patient Problems (1) Hematuria Current Visit: Yes Status: Acute Plan to address problem: Was taken to OR by Dr Banda for Cystoscopy and clot evacuation Fulguration Post op patient doing we;; (2) Urinary retention Current Visit: Yes Status: Acute Plan to address problem: Sec to Clots-removed by cystoscopy and Beaulieu drip (3) UTI (urinary tract infection) Current Visit: Yes Status: Acute Qualifiers: Urinary tract infection type: acute cystitis Plan to address problem: IV Rocephin (4) HLD (hyperlipidemia) Current Visit: Yes Status: Chronic Qualifiers: Hyperlipidemia type: unspecified Qualified Code(s): E78.5 - Hyperlipidemia, unspecified Plan to address problem: Cont statins (5) BPH (benign prostatic hyperplasia) Current Visit: Yes Status: Chronic Qualifiers: Lower urinary tract symptom presence: symptoms present Plan to address problem: Cont Flomax (6) HTN (hypertension) Current Visit: Yes Status: Chronic Qualifiers: Hypertension type: essential hypertension Qualified Code(s): I10 - Essential (primary) hypertension Plan to address problem: Cont antihypertensives (7) DVT prophylaxis Current Visit: Yes Status: Acute Plan to address problem: On SCD's
[2019-04-08] MEDS: SODIUM CHLORIDE 0.9% IRRIG SOLN 2000 ML IR SCH ×4 (01:29→21:19)
[2019-04-08] MEDS: oxyCODONE /ACETAMINOPHEN 5-325MG TAB PO PRN (04:20)
[2019-04-08 04:59] LABS: Basophils % (Auto) 0.2 % (0.0-1.8); Eosinophils # (Auto) 0.2 K/mm3 (0.0-0.4); Eosinophils % (Auto) 2.6 % (0.0-4.3); Hematocrit 30.4 % (35.5-45.6); Hemoglobin 10.6 gm/dl (11.8-15.2); Lymphocytes # (Auto) 1.2 K/mm3 (1.2-5.4); Lymphocytes % (Auto) 15.4 % (13.4-35.0); Mean Corpuscular HGB Conc 35 % (32-34); Mean Corpuscular Volume 91 fl (84-94); Monocytes # (Auto) 0.7 K/mm3 (0.0-0.8); Monocytes % (Auto) 9.1 % (0.0-7.3); Platelet Count 259 K/mm3 (140-440); Red Blood Count 3.33 M/mm3 (3.65-5.03); Red Cell Distribution Width 13.7 % (13.2-15.2)
[2019-04-08 05:13] LABS: Albumin 3.2 g/dL (3.9-5); BUN/Creatinine Ratio 14; Blood Urea Nitrogen 13 mg/dL (9-20); Calcium 8.7 mg/dL (8.4-10.2); Hemolysis Index 131
[2019-04-08 05:44] LABS: Alanine Aminotransferase 23 units/L (7-56)
[2019-04-08] MEDS: D5W/0.45% NACL/KCL 20 MEQ 20 MEQ/1,000 ML BAG IV SCH (06:10)
--- NOTE | 2019-04-08 15:08 | Cat Scan Report ---
CT angio abdomen pelvis INDICATION / CLINICAL INFORMATION: radiation prostatitis w hematuria, prostate a embo. TECHNIQUE: Axial CT images were obtained after injection of 100 mL IV contrast using CTA protocol. 3 plane MIP / 3D reconstructions were produced. All CT scans at this location are performed using CT dose reductio n for ALARA by means of automated exposure control. COMPARISON: None available. FINDINGS: CTA of the abdomen and pelvis: The lower lungs are clear. Liver, gallbladder, spleen, pancreas adrenal glands are unremarkable. No free air or free fluid. No b owel obstruction. The appendix is normal. The abdominal aorta is normal in size without aneurysm or dissection. The SMA, celiac artery, renal a rteries and PEGGY are grossly patent. The urinary bladder is collapsed and difficult to evaluate but appears thickened. The urinary bladder is collapsed by Mendez catheter. No active extravasation on the arterial phase is identified the annamaria on of the prostate or the urinary bladder. No pelvic hematomas appreciated. Review of bone windows demonstrates thoracolumbar type degenerative changes. IMPRESSION: No evidence of hematoma or active extravasation, as outlined above. Urinary bladder is co llapsed and the wall is moderately thickened, nonspecific. The bladder is collapsed by Mendez catheter . Signer Name: Samson Diane MD Signed: 04/08/2019 3:04 PM Workstation Name: [id number]
[2019-04-08] MEDS ORDERED: diazePAM 5 MG TAB PO PRN (19:06)
--- NOTE | 2019-04-09 06:50 | Progress Note ---
Assessment and Plan - Patient Problems (1) Hematuria Current Visit: Yes Status: Acute Plan to address problem: Was taken to OR by Dr Banda for Cystoscopy and clot evacuation Fulguration Post op patient doing we;; (2) Urinary retention Current Visit: Yes Status: Acute Plan to address problem: Sec to Clots-removed by cystoscopy and Beaulieu drip (3) UTI (urinary tract infection) Current Visit: Yes Status: Acute Qualifiers: Urinary tract infection type: acute cystitis Plan to address problem: IV Rocephin (4) HLD (hyperlipidemia) Current Visit: Yes Status: Chronic Qualifiers: Hyperlipidemia type: unspecified Qualified Code(s): E78.5 - Hyperlipidemia, unspecified Plan to address problem: Cont statins (5) BPH (benign prostatic hyperplasia) Current Visit: Yes Status: Chronic Qualifiers: Lower urinary tract symptom presence: symptoms present Plan to address problem: Cont Flomax (6) HTN (hypertension) Current Visit: Yes Status: Chronic Qualifiers: Hypertension type: essential hypertension Qualified Code(s): I10 - Es sential (primary) hypertension Plan to address problem: Cont antihypertensives (7) DVT prophylaxis Current Visit: Yes Status: Acute Plan to address problem: On SCD's (8) Discharge planning issues Current Visit: Yes Status: Acute Plan to address problem: Patient maybe discharged tomorrow if cleared by Dr Banda Subjective Date of service: 04/08/19 Principal diagnosis: hemasturia, radiation prostatitis and urinary retention Interval history: The patient is a 63-year-old male presenting with chief complaint urinary retention. Sensation states symptoms began yesterday at noon with hematuria small amount of dysuria. The patient states then began feels bladder becomes full eventually could not urinate since 06:00 this morning. The patient had a Mendez catheter placed in the ED and states he felt relief initially but now feels the pressure is building back up. There is approximately 700 and also bloody urine present in his Mendez bag. Post Cystoscopy and Clot evacuation and Fulguration doing well. Objective - Constitutional Vitals: Vital Signs - 12hr 04/08/19 04/08/19 04/08/19 21:17 21:20 22:00 Temperature 99.4 F Pulse Rate 81 79 Respiratory 20 20 20 Rate Blood Pressure 121/71 O2 Sat by Pulse 98 99 Oximetry 04/09/19 04:17 Temperature 98.5 F Pulse Rate Respiratory 16 Rate Blood Pressure 126/71 O2 Sat by Pulse Oximetry General appearance: Present: no acute distress, well-nourished - EENT Eyes: PERRL, EOM intact ENT: hearing intact, clear oral mucosa Ears: bilateral: normal - Neck Neck: supple, normal ROM - Respiratory Respiratory effort: normal Respiratory: bilateral: CTA - Breasts Breasts: normal - Cardiovascular Heart rate: 76 Rhythm: regular Heart Sounds: Present: S1 & S2. Absent: gallop, rub Extremities: pulses intact, No edema, normal color, Full ROM - Gastrointestinal General gastrointestinal: Present: soft, non-tender, non-distended, normal bowel sounds - Genitourinary Male genitourinary: normal - Integumentary Integumentary: clear, warm, dry - Musculoskeletal Musculoskeletal: 1, strength equal bilaterally - Neurologic Neurologic: moves all extremities - Psychiatric Psychiatric: memory intact, appropriate mood/affect, intact judgment & insight - Labs CBC & Chem 7: 04/08/19 04:38 04/08/19 04:38
[2019-04-09] MEDS: oxyCODONE /ACETAMINOPHEN 5-325MG TAB PO PRN ×2 (08:29→14:09)
--- NOTE | 2019-04-09 09:08 | Progress Note ---
Assessment and Plan urine crystal clear cath out will watch today Subjective Date of service: 04/09/19 Principal diagnosis: hemasturia, radiation prostatitis and urinary retention Objective - Constitutional Vitals: Vital Signs - 12hr 04/08/19 04/08/19 04/08/19 21:17 21:20 22:00 Temperature 99.4 F Pulse Rate 81 79 Respiratory 20 20 20 Rate Blood Pressure 121/71 O2 Sat by Pulse 98 99 Oximetry 04/09/19 04:17 Temperature 98.5 F Pulse Rate Respiratory 16 Rate Blood Pressure 126/71 O2 Sat by Pulse Oximetry General appearance: Present: no acute distress - Neck Neck: supple - Respiratory Respiratory effort: normal Extremities: no ischemia - Gastrointestinal General gastrointestinal: Present: soft, non-tender - Labs CBC & Chem 7: 04/08/19 04:38 04/08/19 04:38 Medications & Allergies - Medications Allergies/Adverse Reactions: Allergies Sulfa (Sulfonamide Antibiotics) Adverse Reaction (Verified 03/08/19 14:52) Swelling HIVES Home Medications: Home Medications Medication Instructions Recorded Confirmed Last Taken Type Atorvastatin (Nf) [Lipitor (Nf)] 10 mg PO QHS 05/10/14 04/07/19 03/13/19 21:00 History Tamsulosin [Flomax] 10 mg PO QDAY 05/10/14 04/07/19 03/13/19 08:00 History amLODIPine [Norvasc] 10 mg PO DAILY 05/10/14 04/07/19 03/13/19 08:00 History Multivitamin [One-Daily 1 tab PO DAILY 11/20/18 04/07/19 03/13/19 08:00 History Multi-Vitamin] [place] 3,6,9 Combination No.7 1 mg PO DAILY 11/20/18 04/07/19 03/13/19 08:00 History Ketorolac [Toradol] 10 mg PO Q8H PRN 04/07/19 04/07/19 04/06/19 History Mirabegron [Myrbetriq] 25 mg PO DAILY 04/07/19 04/07/19 04/06/19 History 25 mg Active Medications: Generic Name Dose Route Start Last Admin Trade Name Freq PRN Reason Stop Dose Admin Diazepam 10 mg 04/08/19 19:06 04/08/19 20:27 Valium PO 10 mg QHS PRN Administration Sleep Levofloxacin/Dextrose 500 mg in 100 mls @ 100 mls/hr 04/08/19 10:00 04/08/19 09:48 Levaquin 500mg/100ml IV 04/10/19 10:59 100 mls/hr Q24HR NR Administration Protocol Oxycodone/Acetaminophen 2 tab 04/07/19 11:51 04/09/19 08:29 Percocet 5/325 PO 2 tab Q6H PRN Administration Pain, Moderate (4-6) Sodium Chloride 2,000 ml 04/07/19 12:00 04/08/19 21:19 Nacl 0.9% IR 2,000 ml DIRECT JORGE Administration Zolpidem Tartrate 5 mg 04/07/19 11:51 Ambien PO QHS PRN Sleep
--- NOTE | 2019-04-09 10:13 | Consultation ---
History of Present Illness - Reason for Consult Consult date: 04/09/19 Hematuria - History of Present Illness 63-year-old male presenting with chief complaint urinary retention. Sensation states symptoms began yesterday at noon with hematuria small amount of dysuria. The patient states then began feels bladder becomes full eventually could not urinate since 06:00 this morning. The patient had a Mendez catheter placed in the ED and states he felt relief initially but now feels the pressure is building back up. There is approximately 700 and also bloody urine present in his Mendez bag. Past Medical History Previous Medical History?: Yes Hypertension: Yes (since 2013) Diabetes: Yes (BORDERLINE- DIET CONTROLLED) GERD: Yes Yes (prostate) Additional medical history: high cholesterol Surgical History Past Surgical History?: Yes Additional Surgical History: Retrograde pyelogram, prostate seed implants Family History Family history: no significant Social History Smoking Status: Never Smoker Substance Use Type: None (denies illicit drug use), Alcohol (occasional) Medications and Allergies Allergies Allergy/AdvReac Type Severity Reaction Status Date / Time Sulfa (Sulfonamide AdvReac Swelling Verified 03/08/19 14:52 Antibiotics) Home Medications Medication Instructions Recorded Confirmed Last Taken Type Atorvastatin (Nf) [Lipitor (Nf)] 10 mg PO QHS 05/10/14 04/07/19 03/13/19 21:00 H istory Tamsulosin [Flomax] 10 mg PO QDAY 05/10/14 04/07/19 03/13/19 08:00 History amLODIPine [Norvasc] 10 mg PO DAILY 05/10/14 04/07/19 03/13/19 08:00 History Multivitamin [One-Daily 1 tab PO DAILY 11/20/18 04/07/19 03/13/19 08:00 History Multi-Vitamin] [place] 3,6,9 Combination No.7 1 mg PO DAILY 11/20/18 04/07/19 03/13/19 08:00 History Ketorolac [Toradol] 10 mg PO Q8H PRN 04/07/19 04/07/19 04/06/19 History Mirabegron [Myrbetriq] 25 mg PO DAILY 04/07/19 04/07/19 04/06/19 History 25 mg Active Meds: Active Medications Diazepam (Valium) 10 mg PO QHS PRN PRN Reason: Sleep Last Admin: 04/08/19 20:27 Dose: 10 mg Documented by: Levofloxacin/Dextrose (Levaquin 500mg/100ml) 500 mg in 100 mls @ 100 mls/hr IV Q24HR NR; Protocol Stop: 04/10/19 10:59 Last Admin: 04/08/19 09:48 Dose: 100 mls/hr Documented by: Oxycodone/Acetaminophen (Percocet 5/325) 2 tab PO Q6H PRN PRN Reason: Pain, Moderate (4-6) Last Admin: 04/09/19 08:29 Dose: 2 tab Documented by: Sodium Chloride (Nacl 0.9%) 2,000 ml IR DIRECT JORGE Last Admin: 04/08/19 21:19 Dose: 2,000 ml Documented by: Zolpidem Tartrate (Ambien) 5 mg PO QHS PRN PRN Reason: Sleep Review of Systems All systems: negative (see HPI) Exam - Constitutional Vitals: Temp Pulse Resp BP Pulse Ox 98.5 F 79 16 126/71 99 04/09/19 04:17 04/08/19 21:20 04/09/19 04:17 04/09/19 04:17 04/08/19 21:20 General appearance: Present: no acute distress - EENT Eyes: Present: EOM intact ENT: hearing intact - Respiratory Respiratory effort: normal - Abdominal General gastrointestinal: Present: soft, non-tender, other (urine clear) - Psychiatric Psychiatric: appropriate mood/affect, cooperative Results - Labs CBC & Chem 7: 04/09/19 09:29 04/08/19 04:38 Assessment and Plan 63-year-old male with radiation treatment with brachytherapy of the prostate with inflammatory changes of the bladder neck which was biopsied and had hematuria which did not improve within presented to the hospital with gross hematuria and clots in the bladder requiring cystoscopy, transurethral resection of the bladder neck demonstrating varices and cauterization. Vascular as consult for possible prostate and/or cystic artery embolization for bleeding control. I discussed what this procedure wouldn't detail with the patient, and a CTA was obtained to evaluate his pelvis. Fortunately, the patient's hematuria rapidly improved after being treated by Dr. Banda. Discussed with patient that at this time, no need for vascular intervention. Discussed with patient that if this recurs, may benefit from embolization of the future.
[2019-04-09 10:44] LABS: Hematocrit 35.2 % (35.5-45.6); Hemoglobin 12.2 gm/dl (11.8-15.2)
[2019-04-09 12:50] VITALS: BP 134/65
--- NOTE | 2019-04-09 14:10 | Discharge Summary ---
Short Stay Discharge Plan Activity: other (no straining ) Weight Bearing Status: Full Weight Bearing Diet: low fat, low cholesterol, low salt Durable Medical Equipment Needed Upon Discharge: other (inc fluids ) Follow up with: BRITTA MITCHELL MD [Primary Care Provider] - 7 Days PRIMO COLEMAN MD [Staff Physician] - 7 Days
[2019-04-09] MEDS ORDERED: DOCUSATE SODIUM 100 MG CAP PO SCH (15:00)
--- NOTE | 2019-04-09 16:52 | Discharge Summary ---
Providers - Providers Date of Admission: 04/07/19 09:44 Attending physician: XENA GUAMAN MD 04/07/19 10:28 Consult to Physician [CONS] Urgent Comment: Consulting Provider: PRIMO COLEMAN Physician Instructions: Reason For Exam: urinary retention, hematuria 04/07/19 11:49 Consult to Physician [CONS] Urgent Comment: Consulting Provider: KULWINDER KULKARNI Physician Instructions: poss embolization Reason For Exam: hematuria 04/07/19 11:54 Consult to Physician [CONS] Urgent Comment: Consulting Provider: ANUSHKA FELIPE Physician Instructions: Reason For Exam: hypertension Primary care physician: BRITTA MITCHELL Hospitalization Condition: Fair Disposition: DC-01 TO HOME OR SELFCARE Core Measure Documentation - Palliative Care Palliative Care/ Comfort Measures: Not Applicable Exam - Constitutional Vitals: Temp Pulse Resp BP Pulse Ox 98.0 F 84 22 134/65 97 04/09/19 12:02 04/09/19 12:02 04/09/19 12:02 04/09/19 12:02 04/09/19 12:02 Plan Activity: advance as tolerated Follow up with: PRIMO COLEMAN MD [Staff Physician] - 7 Days BRITTA MITCHELL MD [Primary Care Provider] - 7 Days Prescriptions: Docusate Sodium [Colace CAP] 100 mg PO BID #30 capsule oxyCODONE /ACETAMINOPHEN [Percocet 5/325 mg] 1 tab PO Q6H PRN #14 tablet PRN Reason: Pain, Moderate (4-6)
== END 2019-04-09 19:00 | disposition home or self-care (01) ==
LOC: ED 06:10 → 3A 09:44
PROVIDERS: ADMIT Internal Medicine; ATTEND Internal Medicine
DX: N40.1 Benign prostatic hyperplasia with lower urinary tract symptoms (principal); R33.9 Retention of urine, unspecified; N39.0 Urinary tract infection, site not specified; R31.9 Hematuria, unspecified; E78.5 Hyperlipidemia, unspecified; I10 Essential (primary) hypertension; E11.9 Type 2 diabetes mellitus without complications; K21.9 Gastro-esophageal reflux disease without esophagitis; Z79.899 Other long term (current) drug therapy; Z88.2 Allergy status to sulfonamides
CPT/HCPCS: 36415; 36430; 52500; 72170; 74018; 74174; 80048; 80053; 81001; 85014; 85018; 85025; 85610; 85730; 86850; 86900; 86901; 86920; 87076; 87086; 87186; 88304; 88305; 94660; 96365; 96366; 99284; A4217; G0378; J1170; J1956; J2704; J3010; J7030; J7040; P9016; Q9967; 88302; 88307

== ENCOUNTER 2019-04-16 13:05 | Outpatient (CLI) | payer BC | END 2019-04-16 13:06 | disposition home or self-care (01) | LOC: WOUND 13:05 | PROVIDERS: ATTEND Surgery | DX: N30.41 Irradiation cystitis with hematuria (principal); I10 Essential (primary) hypertension; E78.5 Hyperlipidemia, unspecified; Z85.46 Personal history of malignant neoplasm of prostate | CPT/HCPCS: 99214; G0463 ==

== ENCOUNTER 2019-05-02 09:25 | Outpatient (CLI) | payer BC ==
[2019-05-02 11:12] LABS: Blood Urea Nitrogen 12 mg/dL (9-20)
--- NOTE | 2019-05-02 15:46 | Cat Scan Report ---
CTA CHEST WITH IV CONTRAST INDICATION / CLINICAL INFORMATION: I71.2Thoracic aortic aneurysm, without rupture/[id number]. TECHNIQUE: Axial CT images were obtained through the chest after injection of IV contrast. 3 plane MIP and/or 3D reconstructions were produced. All CT scans at this location are performed using CT dose reduction f or ALARA by means of automated exposure control. COMPARISON: July 07, 2016. No interval change FINDINGS: PULMONARY ARTERIES: No pulmonary emboli. THORACIC AORTA: Prominent ascending aorta is noted, measuring 4.05 cm at the sinotubular junction, me asuring 4.4 cm at the level of the angeles, measuring 3.12 cm mid aortic arch and the descending thor acic aorta measures 3.4 cm at the level of the angeles and 2.4 cm thoracoabdominal junction. No eviden ce of an aneurysm or dissection. HEART: No significant abnormality. CORONARY ARTERIES: No significant calcification. PLEURA: No pleural effusion. No pneumothorax. LYMPH NODES: No significant adenopathy. LUNGS: No acute air space or interstitial disease. ADDITIONAL FINDINGS: None. UPPER ABDOMEN: No acute findings. SKELETAL STRUCTURES: No significant osseous abnormality. IMPRESSION: 1. No CT evidence for pulmonary embolism. 2. Prominent slightly ectatic thoracic aorta without definite evidence of an aneurysm or dissection a nd no interval change as compared to previous exam Signer Name: Rome Montelongo MD Signed: 05/02/2019 3:42 PM Workstation Name: [id number]
== END 2019-05-02 09:26 | disposition home or self-care (01) ==
LOC: CT 09:25
PROVIDERS: ATTEND Internal Medicine Cardiovascular Disease
DX: I77.89 Other specified disorders of arteries and arterioles (principal); I71.2 Thoracic aortic aneurysm, without rupture
CPT/HCPCS: 36415; 71275; 82565; 84520; Q9967

== ENCOUNTER 2019-05-18 07:59 | Outpatient (CLI) | payer BC | END 2019-05-18 08:00 | disposition home or self-care (01) | LOC: WOUND 07:59 | PROVIDERS: ATTEND Surgery | DX: N30.41 Irradiation cystitis with hematuria (principal); M87.88 Other osteonecrosis, other site; I10 Essential (primary) hypertension; E78.5 Hyperlipidemia, unspecified; Z85.46 Personal history of malignant neoplasm of prostate | CPT/HCPCS: 99183; G0277 ==

== ENCOUNTER 2019-05-21 08:03 | Outpatient (CLI) | payer BC ==
[2019-05-21] MEDS ORDERED: LIDOCAINE (4%) 40 MG/ML TOPICAL SOLN 50 ML BOTTLE TP ONE (09:00)
== END 2019-05-21 08:04 | disposition home or self-care (01) ==
LOC: WOUND 08:03
PROVIDERS: ATTEND Surgery
DX: N30.41 Irradiation cystitis with hematuria (principal); M87.88 Other osteonecrosis, other site; I10 Essential (primary) hypertension; E78.5 Hyperlipidemia, unspecified; Z85.46 Personal history of malignant neoplasm of prostate
CPT/HCPCS: 99183; G0277

== ENCOUNTER 2019-05-22 07:59 | Outpatient (CLI) | payer BC | END 2019-05-22 08:00 | disposition home or self-care (01) | LOC: WOUND 07:59 | PROVIDERS: ATTEND Surgery | DX: N30.41 Irradiation cystitis with hematuria (principal); M87.88 Other osteonecrosis, other site; I10 Essential (primary) hypertension; E78.5 Hyperlipidemia, unspecified; Z85.46 Personal history of malignant neoplasm of prostate | CPT/HCPCS: 99183; G0277 ==

== ENCOUNTER 2019-05-23 07:59 | Outpatient (CLI) | payer BC | END 2019-05-23 08:00 | disposition home or self-care (01) | LOC: WOUND 07:59 | PROVIDERS: ATTEND Surgery | DX: N30.41 Irradiation cystitis with hematuria (principal); M87.88 Other osteonecrosis, other site; I10 Essential (primary) hypertension; E78.5 Hyperlipidemia, unspecified; Z85.46 Personal history of malignant neoplasm of prostate | CPT/HCPCS: 99183; G0277 ==

== ENCOUNTER 2019-05-24 08:00 | Outpatient (CLI) | payer BC | END 2019-05-24 08:01 | disposition home or self-care (01) | LOC: WOUND 08:00 | PROVIDERS: ATTEND Surgery | DX: N30.41 Irradiation cystitis with hematuria (principal); M87.88 Other osteonecrosis, other site; I10 Essential (primary) hypertension; E78.5 Hyperlipidemia, unspecified; Z85.46 Personal history of malignant neoplasm of prostate | CPT/HCPCS: 99183; G0277 ==

== ENCOUNTER 2019-05-30 08:06 | Outpatient (CLI) | payer BC | END 2019-05-30 08:07 | disposition home or self-care (01) | LOC: WOUND 08:06 | PROVIDERS: ATTEND Surgery | DX: N30.41 Irradiation cystitis with hematuria (principal); M87.88 Other osteonecrosis, other site; I10 Essential (primary) hypertension; E78.5 Hyperlipidemia, unspecified; Z85.46 Personal history of malignant neoplasm of prostate | CPT/HCPCS: 99183; G0277 ==

== ENCOUNTER 2019-05-31 08:14 | Outpatient (CLI) | payer BC | END 2019-05-31 08:15 | disposition home or self-care (01) | LOC: WOUND 08:14 | PROVIDERS: ATTEND Surgery | DX: N30.41 Irradiation cystitis with hematuria (principal); M87.88 Other osteonecrosis, other site; I10 Essential (primary) hypertension; E78.5 Hyperlipidemia, unspecified; Z85.46 Personal history of malignant neoplasm of prostate | CPT/HCPCS: 99183; G0277 ==

== ENCOUNTER 2019-06-01 08:07 | Outpatient (CLI) | payer BC | END 2019-06-01 08:08 | disposition home or self-care (01) | LOC: WOUND 08:07 | PROVIDERS: ATTEND Surgery | DX: N30.41 Irradiation cystitis with hematuria (principal); M87.88 Other osteonecrosis, other site; I10 Essential (primary) hypertension; E78.5 Hyperlipidemia, unspecified; Z85.46 Personal history of malignant neoplasm of prostate | CPT/HCPCS: 99183; G0277 ==

== ENCOUNTER 2019-06-04 08:54 | Outpatient (CLI) | payer BC | END 2019-06-04 08:55 | disposition home or self-care (01) | LOC: WOUND 08:54 | PROVIDERS: ATTEND Surgery | DX: N30.41 Irradiation cystitis with hematuria (principal); M87.88 Other osteonecrosis, other site; L59.8 Other specified disorders of the skin and subcutaneous tissue related to radiation; I10 Essential (primary) hypertension; E78.5 Hyperlipidemia, unspecified; Z85.46 Personal history of malignant neoplasm of prostate; Y84.2 Radiological procedure and radiotherapy as the cause of abnormal reaction of the patient, or of later complication, without mention of misadventure at the time of the procedure | CPT/HCPCS: 99183; G0277 ==

== ENCOUNTER 2019-06-05 09:06 | Outpatient (CLI) | payer BC | END 2019-06-05 09:07 | disposition home or self-care (01) | LOC: WOUND 09:06 | PROVIDERS: ATTEND Surgery | DX: N30.41 Irradiation cystitis with hematuria (principal); M87.88 Other osteonecrosis, other site; I10 Essential (primary) hypertension; E78.5 Hyperlipidemia, unspecified; Z85.46 Personal history of malignant neoplasm of prostate | CPT/HCPCS: 99183; G0277 ==

== ENCOUNTER 2019-06-06 08:38 | Outpatient (CLI) | payer BC | END 2019-06-06 08:39 | disposition home or self-care (01) | LOC: WOUND 08:38 | PROVIDERS: ATTEND Surgery | DX: N30.41 Irradiation cystitis with hematuria (principal); M87.88 Other osteonecrosis, other site; L59.8 Other specified disorders of the skin and subcutaneous tissue related to radiation; I10 Essential (primary) hypertension; E78.5 Hyperlipidemia, unspecified; Z85.46 Personal history of malignant neoplasm of prostate; Y84.2 Radiological procedure and radiotherapy as the cause of abnormal reaction of the patient, or of later complication, without mention of misadventure at the time of the procedure | CPT/HCPCS: 99183; G0277 ==

== ENCOUNTER 2019-06-07 08:08 | Outpatient (CLI) | payer BC | END 2019-06-07 08:09 | disposition home or self-care (01) | LOC: WOUND 08:08 | PROVIDERS: ATTEND Surgery | DX: N30.41 Irradiation cystitis with hematuria (principal); M87.88 Other osteonecrosis, other site; L59.8 Other specified disorders of the skin and subcutaneous tissue related to radiation; I10 Essential (primary) hypertension; E78.5 Hyperlipidemia, unspecified; Z85.46 Personal history of malignant neoplasm of prostate; Y84.2 Radiological procedure and radiotherapy as the cause of abnormal reaction of the patient, or of later complication, without mention of misadventure at the time of the procedure | CPT/HCPCS: 99183; G0277 ==

== ENCOUNTER 2019-06-08 08:03 | Outpatient (CLI) | payer BC | END 2019-06-08 08:04 | disposition home or self-care (01) | LOC: WOUND 08:03 | PROVIDERS: ATTEND Surgery | DX: N30.41 Irradiation cystitis with hematuria (principal); M87.88 Other osteonecrosis, other site; L59.8 Other specified disorders of the skin and subcutaneous tissue related to radiation; I10 Essential (primary) hypertension; E78.5 Hyperlipidemia, unspecified; Z85.46 Personal history of malignant neoplasm of prostate; Y84.2 Radiological procedure and radiotherapy as the cause of abnormal reaction of the patient, or of later complication, without mention of misadventure at the time of the procedure | CPT/HCPCS: 99183; G0277 ==

== ENCOUNTER 2019-06-11 08:06 | Outpatient (CLI) | payer BC | END 2019-06-11 08:07 | disposition home or self-care (01) | LOC: WOUND 08:06 | PROVIDERS: ATTEND Surgery | DX: N30.41 Irradiation cystitis with hematuria (principal); M87.88 Other osteonecrosis, other site; L59.8 Other specified disorders of the skin and subcutaneous tissue related to radiation; I10 Essential (primary) hypertension; E78.5 Hyperlipidemia, unspecified; Z85.46 Personal history of malignant neoplasm of prostate; Y84.2 Radiological procedure and radiotherapy as the cause of abnormal reaction of the patient, or of later complication, without mention of misadventure at the time of the procedure | CPT/HCPCS: 99183; G0277 ==

== ENCOUNTER 2019-06-12 08:46 | Outpatient (CLI) | payer BC | END 2019-06-12 08:47 | disposition home or self-care (01) | LOC: WOUND 08:46 | PROVIDERS: ATTEND Surgery | DX: N30.41 Irradiation cystitis with hematuria (principal); M87.88 Other osteonecrosis, other site; L59.8 Other specified disorders of the skin and subcutaneous tissue related to radiation; I10 Essential (primary) hypertension; E78.5 Hyperlipidemia, unspecified; Z85.46 Personal history of malignant neoplasm of prostate; Y84.2 Radiological procedure and radiotherapy as the cause of abnormal reaction of the patient, or of later complication, without mention of misadventure at the time of the procedure | CPT/HCPCS: 99183; G0277 ==

== ENCOUNTER 2019-06-15 08:04 | Outpatient (CLI) | payer BC | END 2019-06-15 08:05 | disposition home or self-care (01) | LOC: WOUND 08:04 | PROVIDERS: ATTEND Surgery | DX: N30.41 Irradiation cystitis with hematuria (principal); M87.88 Other osteonecrosis, other site; L59.8 Other specified disorders of the skin and subcutaneous tissue related to radiation; I10 Essential (primary) hypertension; E78.5 Hyperlipidemia, unspecified; Z85.46 Personal history of malignant neoplasm of prostate; Y84.2 Radiological procedure and radiotherapy as the cause of abnormal reaction of the patient, or of later complication, without mention of misadventure at the time of the procedure | CPT/HCPCS: 99183; G0277 ==

== ENCOUNTER 2019-06-19 08:20 | Outpatient (CLI) | payer BC | END 2019-06-19 08:21 | disposition home or self-care (01) | LOC: WOUND 08:20 | PROVIDERS: ATTEND Surgery | DX: N30.41 Irradiation cystitis with hematuria (principal); M87.88 Other osteonecrosis, other site; L59.8 Other specified disorders of the skin and subcutaneous tissue related to radiation; I10 Essential (primary) hypertension; E78.5 Hyperlipidemia, unspecified; Z85.46 Personal history of malignant neoplasm of prostate; Y84.2 Radiological procedure and radiotherapy as the cause of abnormal reaction of the patient, or of later complication, without mention of misadventure at the time of the procedure | CPT/HCPCS: 99183; G0277 ==

== ENCOUNTER 2019-06-20 08:39 | Outpatient (CLI) | payer BC | END 2019-06-20 08:40 | disposition home or self-care (01) | LOC: WOUND 08:39 | PROVIDERS: ATTEND Surgery | DX: N30.41 Irradiation cystitis with hematuria (principal); M87.88 Other osteonecrosis, other site; L59.8 Other specified disorders of the skin and subcutaneous tissue related to radiation; I10 Essential (primary) hypertension; E78.5 Hyperlipidemia, unspecified; Z85.46 Personal history of malignant neoplasm of prostate; Y84.2 Radiological procedure and radiotherapy as the cause of abnormal reaction of the patient, or of later complication, without mention of misadventure at the time of the procedure | CPT/HCPCS: 99183; G0277 ==

== ENCOUNTER 2019-06-21 08:27 | Outpatient (CLI) | payer BC | END 2019-06-21 08:28 | disposition home or self-care (01) | LOC: WOUND 08:27 | PROVIDERS: ATTEND Surgery | DX: N30.41 Irradiation cystitis with hematuria (principal); M87.88 Other osteonecrosis, other site; L59.8 Other specified disorders of the skin and subcutaneous tissue related to radiation; I10 Essential (primary) hypertension; E78.5 Hyperlipidemia, unspecified; Z85.46 Personal history of malignant neoplasm of prostate; Y84.2 Radiological procedure and radiotherapy as the cause of abnormal reaction of the patient, or of later complication, without mention of misadventure at the time of the procedure | CPT/HCPCS: 99183; G0277 ==

== ENCOUNTER 2019-06-22 09:39 | Outpatient (CLI) | payer BC | END 2019-06-22 09:40 | disposition home or self-care (01) | LOC: WOUND 09:39 | PROVIDERS: ATTEND Surgery | DX: N30.41 Irradiation cystitis with hematuria (principal); M87.88 Other osteonecrosis, other site; L59.8 Other specified disorders of the skin and subcutaneous tissue related to radiation; I10 Essential (primary) hypertension; E78.5 Hyperlipidemia, unspecified; Z85.46 Personal history of malignant neoplasm of prostate; Y84.2 Radiological procedure and radiotherapy as the cause of abnormal reaction of the patient, or of later complication, without mention of misadventure at the time of the procedure | CPT/HCPCS: 99183; G0277 ==

== ENCOUNTER 2019-06-25 08:30 | Outpatient (CLI) | payer BC | END 2019-06-25 08:31 | disposition home or self-care (01) | LOC: WOUND 08:30 | PROVIDERS: ATTEND Surgery | DX: N30.41 Irradiation cystitis with hematuria (principal); M87.88 Other osteonecrosis, other site; L59.8 Other specified disorders of the skin and subcutaneous tissue related to radiation; I10 Essential (primary) hypertension; E78.5 Hyperlipidemia, unspecified; Z85.46 Personal history of malignant neoplasm of prostate; Y84.2 Radiological procedure and radiotherapy as the cause of abnormal reaction of the patient, or of later complication, without mention of misadventure at the time of the procedure | CPT/HCPCS: 99183; G0277 ==

== ENCOUNTER 2019-06-26 08:20 | Outpatient (CLI) | payer BC | END 2019-06-26 08:21 | disposition home or self-care (01) | LOC: WOUND 08:20 | PROVIDERS: ATTEND Internal Medicine | DX: N30.41 Irradiation cystitis with hematuria (principal); M87.88 Other osteonecrosis, other site; L59.8 Other specified disorders of the skin and subcutaneous tissue related to radiation; I10 Essential (primary) hypertension; E78.5 Hyperlipidemia, unspecified; Z85.46 Personal history of malignant neoplasm of prostate; Y84.2 Radiological procedure and radiotherapy as the cause of abnormal reaction of the patient, or of later complication, without mention of misadventure at the time of the procedure | CPT/HCPCS: 99183; G0277 ==

== ENCOUNTER 2019-06-27 08:25 | Outpatient (CLI) | payer BC | END 2019-06-27 08:26 | disposition home or self-care (01) | LOC: WOUND 08:25 | PROVIDERS: ATTEND Surgery | DX: N30.41 Irradiation cystitis with hematuria (principal); M87.88 Other osteonecrosis, other site; L59.8 Other specified disorders of the skin and subcutaneous tissue related to radiation; I10 Essential (primary) hypertension; E78.5 Hyperlipidemia, unspecified; Z85.46 Personal history of malignant neoplasm of prostate; Y84.2 Radiological procedure and radiotherapy as the cause of abnormal reaction of the patient, or of later complication, without mention of misadventure at the time of the procedure | CPT/HCPCS: 99183; G0277 ==

== ENCOUNTER 2019-06-28 08:58 | Outpatient (CLI) | payer BC | END 2019-06-28 08:59 | disposition home or self-care (01) | LOC: WOUND 08:58 | PROVIDERS: ATTEND Surgery | DX: N30.41 Irradiation cystitis with hematuria (principal); M87.88 Other osteonecrosis, other site; L59.8 Other specified disorders of the skin and subcutaneous tissue related to radiation; I10 Essential (primary) hypertension; E78.5 Hyperlipidemia, unspecified; Z85.46 Personal history of malignant neoplasm of prostate; Y84.2 Radiological procedure and radiotherapy as the cause of abnormal reaction of the patient, or of later complication, without mention of misadventure at the time of the procedure | CPT/HCPCS: 99183; G0277 ==

== ENCOUNTER 2019-07-02 08:24 | Outpatient (CLI) | payer BC | END 2019-07-02 08:25 | disposition home or self-care (01) | LOC: WOUND 08:24 | PROVIDERS: ATTEND Surgery | DX: N30.41 Irradiation cystitis with hematuria (principal); M87.88 Other osteonecrosis, other site; L59.8 Other specified disorders of the skin and subcutaneous tissue related to radiation; I10 Essential (primary) hypertension; E78.5 Hyperlipidemia, unspecified; Z85.46 Personal history of malignant neoplasm of prostate; Y84.2 Radiological procedure and radiotherapy as the cause of abnormal reaction of the patient, or of later complication, without mention of misadventure at the time of the procedure | CPT/HCPCS: 99183; G0277 ==

== ENCOUNTER 2019-07-03 09:01 | Outpatient (CLI) | payer BC | END 2019-07-03 09:02 | disposition home or self-care (01) | LOC: WOUND 09:01 | PROVIDERS: ATTEND Internal Medicine | DX: N30.41 Irradiation cystitis with hematuria (principal); M87.88 Other osteonecrosis, other site; L59.8 Other specified disorders of the skin and subcutaneous tissue related to radiation; I10 Essential (primary) hypertension; E78.5 Hyperlipidemia, unspecified; Z85.46 Personal history of malignant neoplasm of prostate; Y84.2 Radiological procedure and radiotherapy as the cause of abnormal reaction of the patient, or of later complication, without mention of misadventure at the time of the procedure | CPT/HCPCS: 99183; G0277 ==

== ENCOUNTER 2019-07-04 08:58 | Outpatient (CLI) | payer BC | END 2019-07-04 08:59 | disposition home or self-care (01) | LOC: WOUND 08:58 | PROVIDERS: ATTEND Surgery | DX: N30.41 Irradiation cystitis with hematuria (principal); M87.88 Other osteonecrosis, other site; L59.8 Other specified disorders of the skin and subcutaneous tissue related to radiation; I10 Essential (primary) hypertension; E78.5 Hyperlipidemia, unspecified; Z85.46 Personal history of malignant neoplasm of prostate; Y84.2 Radiological procedure and radiotherapy as the cause of abnormal reaction of the patient, or of later complication, without mention of misadventure at the time of the procedure | CPT/HCPCS: 99183; G0277 ==

== ENCOUNTER 2019-07-05 08:20 | Outpatient (CLI) | payer BC | END 2019-07-05 08:21 | disposition home or self-care (01) | LOC: WOUND 08:20 | PROVIDERS: ATTEND Surgery | DX: N30.41 Irradiation cystitis with hematuria (principal); M87.88 Other osteonecrosis, other site; L59.8 Other specified disorders of the skin and subcutaneous tissue related to radiation; I10 Essential (primary) hypertension; E78.5 Hyperlipidemia, unspecified; Z85.46 Personal history of malignant neoplasm of prostate; Y84.2 Radiological procedure and radiotherapy as the cause of abnormal reaction of the patient, or of later complication, without mention of misadventure at the time of the procedure | CPT/HCPCS: 99183; G0277 ==

== ENCOUNTER 2019-07-06 08:48 | Outpatient (CLI) | payer BC | END 2019-07-06 08:49 | disposition home or self-care (01) | LOC: WOUND 08:48 | PROVIDERS: ATTEND Internal Medicine | DX: N30.41 Irradiation cystitis with hematuria (principal); M87.88 Other osteonecrosis, other site; L59.8 Other specified disorders of the skin and subcutaneous tissue related to radiation; I10 Essential (primary) hypertension; E78.5 Hyperlipidemia, unspecified; Z85.46 Personal history of malignant neoplasm of prostate; Y84.2 Radiological procedure and radiotherapy as the cause of abnormal reaction of the patient, or of later complication, without mention of misadventure at the time of the procedure | CPT/HCPCS: 99183; G0277 ==

== ENCOUNTER 2019-07-09 08:37 | Outpatient (CLI) | payer BC | END 2019-07-09 08:38 | disposition home or self-care (01) | LOC: WOUND 08:37 | PROVIDERS: ATTEND Surgery | DX: N30.41 Irradiation cystitis with hematuria (principal); M87.88 Other osteonecrosis, other site; L59.8 Other specified disorders of the skin and subcutaneous tissue related to radiation; I10 Essential (primary) hypertension; E78.5 Hyperlipidemia, unspecified; Z85.46 Personal history of malignant neoplasm of prostate; Y84.2 Radiological procedure and radiotherapy as the cause of abnormal reaction of the patient, or of later complication, without mention of misadventure at the time of the procedure | CPT/HCPCS: 99183; G0277 ==

== ENCOUNTER 2019-07-10 08:23 | Outpatient (CLI) | payer BC | END 2019-07-10 08:24 | disposition home or self-care (01) | LOC: WOUND 08:23 | PROVIDERS: ATTEND Internal Medicine | DX: N30.41 Irradiation cystitis with hematuria (principal); M87.88 Other osteonecrosis, other site; L59.8 Other specified disorders of the skin and subcutaneous tissue related to radiation; I10 Essential (primary) hypertension; E78.5 Hyperlipidemia, unspecified; Z85.46 Personal history of malignant neoplasm of prostate; Y84.2 Radiological procedure and radiotherapy as the cause of abnormal reaction of the patient, or of later complication, without mention of misadventure at the time of the procedure | CPT/HCPCS: 99183; G0277 ==

== ENCOUNTER 2019-07-12 08:25 | Outpatient (CLI) | payer BC | END 2019-07-12 08:26 | disposition home or self-care (01) | LOC: WOUND 08:25 | PROVIDERS: ATTEND Surgery | DX: N30.41 Irradiation cystitis with hematuria (principal); M87.88 Other osteonecrosis, other site; L59.8 Other specified disorders of the skin and subcutaneous tissue related to radiation; I10 Essential (primary) hypertension; E78.5 Hyperlipidemia, unspecified; Z85.46 Personal history of malignant neoplasm of prostate; Y84.2 Radiological procedure and radiotherapy as the cause of abnormal reaction of the patient, or of later complication, without mention of misadventure at the time of the procedure | CPT/HCPCS: 99183; G0277 ==

== ENCOUNTER 2019-07-13 08:25 | Outpatient (CLI) | payer BC | END 2019-07-13 08:26 | disposition home or self-care (01) | LOC: WOUND 08:25 | PROVIDERS: ATTEND Internal Medicine | DX: N30.41 Irradiation cystitis with hematuria (principal); M87.88 Other osteonecrosis, other site; L59.8 Other specified disorders of the skin and subcutaneous tissue related to radiation; I10 Essential (primary) hypertension; E78.5 Hyperlipidemia, unspecified; Z85.46 Personal history of malignant neoplasm of prostate; Y84.2 Radiological procedure and radiotherapy as the cause of abnormal reaction of the patient, or of later complication, without mention of misadventure at the time of the procedure | CPT/HCPCS: 99183; G0277 ==

== ENCOUNTER 2019-07-16 08:35 | Outpatient (CLI) | payer BC | END 2019-07-16 08:36 | disposition home or self-care (01) | LOC: WOUND 08:35 | PROVIDERS: ATTEND Surgery | DX: N30.41 Irradiation cystitis with hematuria (principal); M87.88 Other osteonecrosis, other site; L59.8 Other specified disorders of the skin and subcutaneous tissue related to radiation; I10 Essential (primary) hypertension; E78.5 Hyperlipidemia, unspecified; Z85.46 Personal history of malignant neoplasm of prostate; Y84.2 Radiological procedure and radiotherapy as the cause of abnormal reaction of the patient, or of later complication, without mention of misadventure at the time of the procedure | CPT/HCPCS: 99183; G0277 ==

== ENCOUNTER 2021-08-21 09:35 | Outpatient (CLI) | payer OTHER, MEDICARE ==
[2021-08-21 11:50] LABS: Blood Urea Nitrogen 11 mg/dL (9-20)
--- NOTE | 2021-08-21 16:13 | Cat Scan Report ---
CTA CHEST WITH IV CONTRAST INDICATION / CLINICAL INFORMATION: I71.2. Thoracic aortic aneurysm TECHNIQUE: Axial CT images were obtained through the chest after injection of IV contrast. 3 plane MIP and/or 3D reconstructions were produced. All CT scans at this location are performed using CT dose reduction f or ALARA by means of automated exposure control. COMPARISON: 05/02/2019 FINDINGS: PULMONARY ARTERIES: No central or segmental pulmonary artery filling defect. THORACIC AORTA: Prominent ascending aorta is again noted. This appears unchanged from prior study. Th is measures 4.1 cm at the sinotubular junction and 4.4 cm at the level of the pulmonary artery. The d escending aorta measures 3.0 cm at the level of the pulmonary artery. This measures 2.4 cm at the hia tus. Slightly suboptimal contrast bolus timing without evidence of dissection. HEART: No significant abnormality. CORONARY ARTERIES: No significant calcification. PLEURA: No pleural effusion. No pneumothorax. LYMPH NODES: No significant adenopathy. LUNGS: No acute air space or interstitial disease. ADDITIONAL FINDINGS: None. UPPER ABDOMEN: No acute findings. SKELETAL STRUCTURES: No significant osseous abnormality. IMPRESSION: 1. Unchanged mild dilation of the ascending thoracic aorta, as above. 2. No acute findings in the chest. Signer Name: Gomez Bashir MD Signed: 08/21/2021 4:09 PM Workstation Name: [id number]
== END 2021-08-21 09:36 | disposition home or self-care (01) ==
LOC: CT 09:35
PROVIDERS: ATTEND Internal Medicine Cardiovascular Disease
DX: I71.2 Thoracic aortic aneurysm, without rupture (principal); I10 Essential (primary) hypertension; R94.31 Abnormal electrocardiogram [ECG] [EKG]
CPT/HCPCS: 36415; 71275; 82565; 84520; Q9967